=== PATIENT | female | born 1935 | race Asian ===

== ENCOUNTER 2019-11-02 12:36 | Inpatient (IN) | payer MEDICARE, MEDICAID ==
[~2019-11-02] VITALS: Ht 152.4 cm; Wt 49.9 kg
--- NOTE | 2019-11-02 12:41 | NUR ---
ED Nurse Note: pt brought in by ambulance from home for possible overdose on hydralazone 25mg. pt states she may taken more than 4 pills today. Pt has Hx of dementia.
[2019-11-02 12:42] VITALS: BP 135/70
--- NOTE | 2019-11-02 13:00 | NUR ---
ED Nurse Note: pt taken to CT
--- NOTE | 2019-11-02 13:17 | NUR ---
ED Nurse Note: pt back from ct
--- NOTE | 2019-11-02 13:37 | Diagnostic Imaging Report ---
Indications: Altered mental status Technique: Spiral acquisitions obtained through the brain. Angled axial and coronal 5 x 5 mm slices were reconstructed. Total dose length product 1018 mGycm. CTDI vol(s) 53 mGy. Dose reduction achieved using automated exposure control Comparison: None. Findings: No acute intracranial hemorrhage or edema. No mass effect or midline shift. There is minimal age-related cerebral volume loss and minimal periventricular deep white matter chronic ischemic change.. Visualized orbits are unremarkable. The sinuses are clear. The mastoids are clear. The calvarium is intact. Impression: Minimal chronic and age-related changes Negative for acute intracranial bleed or mass effect. The CT scanner at [facility] is accredited by the [employer] and the scans are performed using protocols designed to limit radiation exposure to as low as reasonably achievable to attain images of sufficient resolution adequate for diagnostic evaluation.
--- NOTE | 2019-11-02 13:46 | Emergency Room Report ---
History of Present Illness General Chief Complaint: Overdose Source: Patient Present Illness HPI Patient sent from home with reports of change in mental status initially the history of present illness was significantly limited However we were able to obtain the son's phone number who reports that the patient has been having signs of dementia Worsening over the past several days and appears to be possibly taking too much of her medications They were concerned about her wellbeing And requesting for her to be in the hospital Patient herself Awakens at times is verbal however at times does show some signs of confusion There was no reports of vomiting or diarrhea no reports of fevers Son contacted at [phone] Allergies: Coded Allergies: No Known Allergies (Unverified , 11/02/19) COVID-19 Screening Contact w/high risk pt: No Recent Travel to affected area: No Experienced COVID-19 symptoms?: No COVID-19 Testing performed MICROFILM CAMERA OPERATOR: No Patient History Limited by: medical condition Past Medical History: see triage record Now: No Reviewed Nursing Documentation: PMH: Agreed; PSxH: Agreed Nursing Documentation-PMH Past Medical History: No History, Except For Hx Hypertension: Yes Review of Systems All Other Systems: limited - Other than the ones mentioned in the history of present illness all others are reviewed however they do stay limited due to the patient's mental status Physical Exam Vital Signs Date Time Temp Pulse Resp B/P (MAP) Pulse Ox O2 Delivery O2 Flow Rate FiO2 11/02/19 12:29 97.9 56 18 132/61 (84) 98 Room Air Sp02 EP Interpretation: reviewed, normal General Appearance: no apparent distress Head: normocephalic, atraumatic Eyes: bilateral eye PERRL, bilateral eye EOMI ENT: dry mucus membranes Neck: supple, no meningismus Respiratory: lungs clear, no respiratory distress, no retraction Cardiovascular #1: regular rate, rhythm Gastrointestinal: non tender, soft Genitourinary: no CVA tenderness Musculoskeletal: other - No obvious focal deficits however patient does not follow command Neurologic: responsive - Patient has eyes open responsive was able to give her son's phone number however does have some signs of encephalopathy Skin: no rash Lymphatic: no adenopathy Medical Decision Making Diagnostic Impression: Primary Impression: encephalopathy Additional Impression: Dehydration ER Course Given the patient's history and presentation multiple differentials and consideration including but not limited to Infectious process, neurological, neurosurgical, dehydration patient has extensive Work-up initiated CT imaging does not show any acute process I did speak to the patient's son who reports that the patient's mentation has continued to worsen they feel uncomfortable with the patient at home and are concerned she can potentially take the wrong medications or too much of the other medications and requesting inpatient care Labs Test 11/02/19 13:21 11/02/19 14:34 11/03/19 05:20 11/03/19 10:05 White Blood Count 7.0 K/UL (4.8-10.8) 11.4 K/UL (4.8-10.8) Red Blood Count 4.35 M/UL (4.20-5.40) 4.18 M/UL (4.20-5.40) Hemoglobin 14.4 G/DL (12.0-16.0) 13.8 G/DL (12.0-16.0) Hematocrit 40.1 % (37.0-47.0) 38.3 % (37.0-47.0) Mean Corpuscular Volume 92 FL (80-99) 92 FL (80-99) Mean Corpuscular Hemoglobin 33.1 PG (27.0-31.0) 33.1 PG (27.0-31.0) Mean Corpuscular Hemoglobin Concent 35.9 G/DL (32.0-36.0) 36.1 G/DL (32.0-36.0) Red Cell Distribution Width 11.4 % (11.6-14.8) 11.3 % (11.6-14.8) Platelet Count 215 K/UL (150-450) 222 K/UL (150-450) Mean Platelet Volume 4.9 FL (6.5-10.1) 5.0 FL (6.5-10.1) Neutrophils (%) (Auto) % (45.0-75.0) 83.0 % (45.0-75.0) Lymphocytes (%) (Auto) % (20.0-45.0) 9.9 % (20.0-45.0) Monocytes (%) (Auto) % (1.0-10.0) 6.4 % (1.0-10.0) Eosinophils (%) (Auto) % (0.0-3.0) 0.3 % (0.0-3.0) Basophils (%) (Auto) % (0.0-2.0) 0.3 % (0.0-2.0) Differential Total Cells Counted 100 Neutrophils % (Manual) 79 % (45-75) Lymphocytes % (Manual) 16 % (20-45) Monocytes % (Manual) 4 % (1-10) Eosinophils % (Manual) 1 % (0-3) Basophils % (Manual) 0 % (0-2) Band Neutrophils 0 % (0-8) Platelet Estimate Adequate Platelet Morphology Normal Red Blood Cell Morphology Normal Sodium Level 131 MMOL/L (136-145) 131 MMOL/L (136-145) Potassium Level 3.4 MMOL/L (3.5-5.1) 3.5 MMOL/L (3.5-5.1) Chloride Level 95 MMOL/L (98-107) 95 MMOL/L (98-107) Carbon Dioxide Level 25 MMOL/L (21-32) 26 MMOL/L (21-32) Anion Gap 11 mmol/L (5-15) 11 mmol/L (5-15) Blood Urea Nitrogen 10 mg/dL (7-18) 9 mg/dL (7-18) Creatinine 0.7 MG/DL (0.55-1.30) 0.7 MG/DL (0.55-1.30) Estimat Glomerular Filtration Rate > 60 mL/min (>60) > 60 mL/min (>60) Glucose Level 142 MG/DL (74-106) 105 MG/DL (74-106) Calcium Level 8.7 MG/DL (8.5-10.1) 8.7 MG/DL (8.5-10.1) Total Bilirubin 0.6 MG/DL (0.2-1.0) 0.8 MG/DL (0.2-1.0) Aspartate Amino Transf (AST/SGOT) 23 U/L (15-37) 55 U/L (15-37) Alanine Aminotransferase (ALT/SGPT) 24 U/L (12-78) 33 U/L (12-78) Alkaline Phosphatase 57 U/L (46-116) 50 U/L (46-116) Total Creatine Kinase 132 U/L (26-308) Troponin I 0.005 ng/mL (0.000-0.056) Pro-B-Type Natriuretic Peptide 406 pg/mL (0-125) Total Protein 7.0 G/DL (6.4-8.2) 6.9 G/DL (6.4-8.2) Albumin 3.9 G/DL (3.4-5.0) 3.8 G/DL (3.4-5.0) Globulin 3.1 g/dL 3.1 g/dL Albumin/Globulin Ratio 1.3 (1.0-2.7) 1.2 (1.0-2.7) Lipase 107 U/L (73-393) Urine Color Pale yellow Urine Appearance Slightly cloudy Urine pH 8 (4.5-8.0) Urine Specific Alexis 1.010 (1.005-1.035) Urine Protein 2+ (NEGATIVE) Urine Glucose (UA) Negative (NEGATIVE) Urine Ketones 2+ (NEGATIVE) Urine Blood 1+ (NEGATIVE) Urine Nitrite Negative (NEGATIVE) Urine Bilirubin Negative (NEGATIVE) Urine Urobilinogen Normal MG/DL (0.0-1.0) Urine Leukocyte Esterase Negative (NEGATIVE) Urine RBC 0-2 /HPF (0 - 2) Urine WBC 0-2 /HPF (0 - 2) Urine Squamous Epithelial Cells Few /LPF (NONE/OCC) Urine Bacteria Few /HPF (NONE) Urine Opiates Screen Negative (NEGATIVE) Urine Barbiturates Screen Negative (NEGATIVE) Phencyclidine (PCP) Screen Negative (NEGATIVE) Urine Amphetamines Screen Negative (NEGATIVE) Urine Benzodiazepines Screen Negative (NEGATIVE) Urine Cocaine Screen Negative (NEGATIVE) Urine Marijuana (THC) Screen Negative (NEGATIVE) Hemoglobin A1c 6.8 % (4.3-6.0) Magnesium Level 2.0 MG/DL (1.8-2.4) Vitamin B12 Level 847 PG/ML (193-986) Folate 27.5 NG/ML (8.6-58.9) Thyroid Stimulating Hormone (TSH) 0.919 uiU/mL (0.358-3.740) Ammonia 17 umol/L (11-32) Test 11/04/19 05:50 White Blood Count 6.1 K/UL (4.8-10.8) Red Blood Count 3.74 M/UL (4.20-5.40) Hemoglobin 12.7 G/DL (12.0-16.0) Hematocrit 34.0 % (37.0-47.0) Mean Corpuscular Volume 91 FL (80-99) Mean Corpuscular Hemoglobin 34.0 PG (27.0-31.0) Mean Corpuscular Hemoglobin Concent 37.3 G/DL (32.0-36.0) Red Cell Distribution Width 10.9 % (11.6-14.8) Platelet Count 191 K/UL (150-450) Mean Platelet Volume 5.2 FL (6.5-10.1) Neutrophils (%) (Auto) 71.4 % (45.0-75.0) Lymphocytes (%) (Auto) 17.9 % (20.0-45.0) Monocytes (%) (Auto) 9.6 % (1.0-10.0) Eosinophils (%) (Auto) 0.6 % (0.0-3.0) Basophils (%) (Auto) 0.5 % (0.0-2.0) Sodium Level 134 MMOL/L (136-145) Potassium Level 3.5 MMOL/L (3.5-5.1) Chloride Level 98 MMOL/L (98-107) Carbon Dioxide Level 28 MMOL/L (21-32) Anion Gap 9 mmol/L (5-15) Blood Urea Nitrogen 11 mg/dL (7-18) Creatinine 0.7 MG/DL (0.55-1.30) Estimat Glomerular Filtration Rate > 60 mL/min (>60) Glucose Level 86 MG/DL (74-106) Calcium Level 8.3 MG/DL (8.5-10.1) Total Bilirubin 1.0 MG/DL (0.2-1.0) Aspartate Amino Transf (AST/SGOT) 90 U/L (15-37) Alanine Aminotransferase (ALT/SGPT) 39 U/L (12-78) Alkaline Phosphatase 38 U/L (46-116) Total Protein 6.1 G/DL (6.4-8.2) Albumin 3.4 G/DL (3.4-5.0) Globulin 2.7 g/dL Albumin/Globulin Ratio 1.3 (1.0-2.7) Rhythm Strip Diag. Results EP Interpretation: yes Rate: 77 Rhythm: NSR, no PVC's, no ectopy Chest X-Ray Diagnostic Results Chest X-Ray Diagnostic Results : Chest X-Ray Ordered: Yes # of Views/Limited/Complete: 1 View Indication: Chest Pain EP Interpretation: Yes Interpretation: no consolidation, no effusion, no pneumothorax Impression: No acute disease Electronically Signed by: Speedy Randle DO CT/MRI/US Diagnostic Results CT/MRI/US Diagnostic Results : Impression CT head no acute disease Last Vital Signs Date Time Temp Pulse Resp B/P (MAP) Pulse Ox O2 Delivery O2 Flow Rate FiO2 11/02/19 12:42 97.9 60 18 135/70 98 Room Air Status: improved Disposition: ADMITTED INPATIENT Condition: Serious Speedy Randle DO Nov 02, 2019 13:46
--- NOTE | 2019-11-02 13:47 | NUR ---
ED Nurse Note: [phone] "eldest son" #
--- NOTE | 2019-11-02 13:50 | NUR ---
ED Nurse Note: PT took out IV and disconnected her self from monitor box and stated she wanted to go home. pt also became aggitated and physically aggressive. pt attempted to strike out at staff. ERMD aware with haldol and ativan order.
[2019-11-02] MEDS ORDERED: Haloperidol 5mg/ml Inj IM ONE (14:00)
[2019-11-02] MEDS ORDERED: LORazepam Inj 2mg/ml 1ml IV ONE (14:00)
[2019-11-02 14:06] LABS: HEMATOCRIT 40.1 % (37.0-47.0); HEMOGLOBIN 14.4 G/DL (12.0-16.0); MEAN CORPUSCULAR VOLUME 92 FL (80-99); PLATELET COUNT 215 K/UL (150-450); RED BLOOD COUNT 4.35 M/UL (4.20-5.40); RED CELL DISTRIBUTION WIDTH 11.4 % (11.6-14.8)
[2019-11-02 14:15] VITALS: BP 112/64
[2019-11-02 14:28] LABS: ANION GAP 11 mmol/L (5-15); BLOOD UREA NITROGEN 10 mg/dL (7-18); CALCIUM 8.7 MG/DL (8.5-10.1); CARBON DIOXIDE 25 MMOL/L (21-32); CHLORIDE 95 MMOL/L (98-107); CREATININE 0.7 MG/DL (0.55-1.30); POTASSIUM 3.4 MMOL/L (3.5-5.1); SODIUM 131 MMOL/L (136-145)
--- NOTE | 2019-11-02 14:36 | NUR ---
ED Nurse Note: urine sample collected and sent to lab. pt is calm and coorporative at this time.
[2019-11-02 14:39] LABS: ALANINE AMINOTRANSFERASE 24 U/L (12-78); ALBUMIN 3.9 G/DL (3.4-5.0); ALBUMIN/GLOBULIN RATIO 1.3 (1.0-2.7); ALKALINE PHOSPHATASE 57 U/L (46-116); ASPARTATE AMINO TRANSFERASE 23 U/L (15-37); BILIRUBIN,TOTAL 0.6 MG/DL (0.2-1.0); CREATINE KINASE 132 U/L (26-308)
[2019-11-02] MEDS ORDERED: HYDRALAZINE HCL50 MG ORAL (14:52)
[2019-11-02] MEDS ORDERED: MEMANTINE HCL E28 MG PO (14:52)
[2019-11-02] MEDS ORDERED: AMLODIPINE BESYL5 MG ORAL (14:52)
[2019-11-02] MEDS ORDERED: ATORVASTATIN CA20 MG ORAL (14:52)
[2019-11-02] MEDS ORDERED: DONEPEZIL HCL10 M2 ORAL (14:52)
[2019-11-02] MEDS ORDERED: METOPROLOL SUCC50 MG ORAL (14:52)
[2019-11-02] MEDS ORDERED: MICARDIS40 MG ORAL (14:52)
[2019-11-02] MEDS ORDERED: ASPIRIN-LOW81 MG ORAL (14:52)
[2019-11-02 15:33] LABS: APPEARANCE,URINE SLIGHTLY CLOUDY; BILIRUBIN, URINE NEGATIVE (NEGATIVE); COLOR,URINE PALE YELLOW; GLUCOSE, URINE (UA) NEGATIVE (NEGATIVE); KETONES,URINE 2+ (NEGATIVE); LEUKOCYTE ESTERASE ,URINE NEGATIVE (NEGATIVE); NITRITE,URINE NEGATIVE (NEGATIVE); PH,URINE 8 (4.5-8.0); PROTEIN,URINE 2+ (NEGATIVE); UROBILINOGEN,URINE NORMAL MG/DL (0.0-1.0)
[2019-11-02 16:29] VITALS: BP 130/76
--- NOTE | 2019-11-02 16:30 | Diagnostic Imaging Report ---
Indication: Chest pain Technique: One view of the chest Comparison: none Findings: Lungs and pleural spaces are clear. The heart size is normal. Aorta is tortuous ectatic and calcified. Impression: No acute process
--- NOTE | 2019-11-02 17:01 | NUR ---
ED Nurse Note: home meds dropped off to pharmacy. slip # [id number]
--- NOTE | 2019-11-02 18:00 | NUR ---
ED Nurse Note: PT taken up to room 220 accompanied by sr. operations manager and RN in stable conditiopn via gurney with bus monitor box. belonging list signed off. report given to ariane whitehead.
--- NOTE | 2019-11-02 18:30 | NUR ---
NURSE NOTES: Received patient from ED RN Kassandra. Asleep in bed. IV line on left AC g20 intact, secured with kerlix. VS taken: 122/59, 61 HR, 96% O2 sat, 97.7F, 18 RR. No SOB or acute distress. Tele box attached. Refused to change into hospital gown. No skin issues noted. No belongings except for clothes she is wearing. Bed locked in low position, alarm on, side rails raised. Call light within reach. Will continue frequent rounding and plan of care.
--- NOTE | 2019-11-02 19:46 | NUR ---
NURSE NOTES: Report received from Felicia RN. Patient is awake and alert x 2. Patient is forgetful, and confused at times. Patient gets up without calling and is unsteady on feet. Educated patient to call when wanting to get up. Patient verbalized understanding, however, continued to get up out of bed. Patient identified as a high fall risk. Made GROUND OPERATIONS SUPERINTENDENT aware. Made charge nurse aware. Bed locked, alarmed, and in lowest position. patient noted to have 20 pamella in left forearm. Saline lock. Endorsed to Gabe MURGUIA that admission still needs to be completed. Will complete admission. Will continue to follow plan of care.
--- NOTE | 2019-11-02 19:46 | NUR ---
HAND-OFF: Report given to Gabe MURGUIA.
--- NOTE | 2019-11-02 21:03 | NUR ---
NURSE NOTES: Spoke with son Kalpesh Kate (next of Kin) to obtain medical history. Paged Doctor Pardeep for medication to help calm patient down. patient very anxious and keeps getting out of bed and is weak on feet.
--- NOTE | 2019-11-02 21:34 | NUR ---
NURSE NOTES: Patient found to be pulling at IV line. Patient continues to try and get out of bed without help. Patient is a high fall risk. Patient placed in bilateral soft wrist restraints due to pulling at lines and patient safety. Order obtained via telephone from Doctor Roberto.
[2019-11-02] MEDS: Heparin 5000 units/ml inj SUBQ SCH (22:31)
[2019-11-02] MEDS: NS w/KCl 20mEq 1000ml 1,000 ML IV SCH (22:47)
--- NOTE | 2019-11-02 23:45 | NUR ---
NURSE NOTES: Bed alarm found to be going off. Patient sitting at edge of bed stating she wants to go home. Patient out of restraints. Removed IV. Bleeding from IV insertion site. Patient became aggitated and combative when tried to put back to bed. With help from other staff was able to safely get patient back to bed. Attempted to use commercial engineer phone, patient would not use. Had German speaking staff member attempt to communicate with patient. Patient is confused and just kept stating she wanted to go home. Attempted to place new IV access, patient became increasingly combative and continued to pull away. Unable to gain IV access at this time. Patient place back in restraints. Bed locked, alarmed, in lowest position. Doctor Pardeep called to inform of no IV access. No answer, Gabe MURGUIA left voice mail. Will await call back and continue to follow plan of care.
[2019-11-03] VITALS: BP 134/60
--- NOTE | 2019-11-03 00:22 | NUR ---
NURSE NOTES: Patient's bed alarm going off. Patient found at edge of bed out of restraints. Brought patient to bathroom. Assisted patient back to bed. Gave water and crackers. After finished. Safely put back in bilateral soft wrist restraints. When putting back in restraints Gabe MURGUIA noticed that patient has slight bruising on wrist. Likely from pulling to get out of restraints. No edema noted. Patient able to move extremities. Pules present.
[2019-11-03] MEDS ORDERED: LORazepam Inj 2mg/ml 1ml IV SCH (01:30)
--- NOTE | 2019-11-03 01:33 | NUR ---
NURSE NOTES: Acknowledge ordered for one time dose of Ativan. Doctor Pardeep ordered it via IV. As previously stated, patient removed IV and would not allow staff to place a new one. Patient is currently asleep in bed. Will attempt to place new IV when patient is awake.
--- NOTE | 2019-11-03 01:45 | Consultation ---
DATE OF CONSULTATION: 11/02/2019 CARDIOLOGY CONSULTATION CONSULTING PHYSICIAN: Lopez Roberto MD. REFERRING PHYSICIAN: Alo Hahn MD. REASON FOR CONSULTATION: Confusion, bradycardia. HISTORY OF PRESENT ILLNESS: This is an 84-year-old [place]ian female. She apparently lives at home with family members. She was brought to the emergency room for further evaluation of increasing confusion and agitation and "worsening dementia." The patient has been progressive more over the past few days and has been taking too many of her usual medications. Family members were concerned about her well being. They felt that she could not stay safely at home. The patient reportedly has not had any signs of fever, chills, cough, sputum production, or shortness of breath. No vomiting or diarrhea. No dysuria or incontinence. There is no record of any COVID-19 contact. PAST MEDICAL HISTORY: Osteoporosis, osteoarthritis, hypertension, hyperlipidemia. ALLERGIES: Not known. SOCIAL HISTORY: Nonsmoker. No alcohol use. FAMILY HISTORY: Noncontributory. REVIEW OF SYSTEMS: Cannot be reliably obtained from the patient. Pertinent data from family members as outlined above. PHYSICAL EXAMINATION: GENERAL: Awake, alert, interactive, but confused. Non directable bed wanting to get up and self-ambulate. VITAL SIGNS: Blood pressure 132/61, heart rate 56, respirations 18, afebrile, oxygen saturation 98% on room air. HEENT: Temporal wasting. Dry mucous membranes. NECK: Supple. LUNGS: Clear. BREASTS: No breast masses. CARDIAC: Regular. Normal S1, S2. A 1/6 systolic murmur at base. ABDOMEN: Soft. EXTREMITIES: No edema. NEUROLOGIC: Reveals symmetric strength. No asterixis. LABORATORY DATA: White count 7, hemoglobin 14, platelets 215. Sodium 131, potassium 3.4, bicarb 25, BUN 10, creatinine 0.7, glucose 142. Pro natriuretic peptide 406. Troponin negative. Albumin 3.9. Urinalysis with no active sediment. Toxicology screen negative. IMPRESSION: 1. Acute metabolic encephalopathy with baseline dementia. 2. Asymptomatic sinus bradycardia - may be medication related. 3. Hypertensive heart disease, on multiple medications. 4. Hyponatremia. 5. Hypokalemia. 6. Hypochloremia. 7. Hyperglycemia. 8. Chronic diastolic congestive heart failure. PLAN: 1. Saline hydration. 2. Hold all medications. 3. Stepwise uptitration of antihypertensive regimen. 4. Avoid diuretics. 5. Check hemoglobin A1c to assess for hyperglycemia. 6. Metabolic profile to include B12, folate, and thyroid panel as well as ammonia levels. 7. CT scan of the brain was reportedly negative, but will be reviewed. 8. Patient may require placement. 9. Further recommendations to follow. Lopez Roberto M.D. DR: LINO JOB#: [id number] CC: TERESO
[2019-11-03 04:00] VITALS: BP 121/75
--- NOTE | 2019-11-03 04:00 | NUR ---
NURSE NOTES: 24 pamella IV placed in right hand. Labs drawn. Ativan given via IV. patient placed back in restraints.
[2019-11-03 05:44] LABS: BASOPHILS % (AUTO) 0.3 % (0.0-2.0); EOSINOPHILS % (AUTO) 0.3 % (0.0-3.0); HEMATOCRIT 38.3 % (37.0-47.0); HEMOGLOBIN 13.8 G/DL (12.0-16.0); LYMPHOCYTES % (AUTO) 9.9 % (20.0-45.0); MEAN CORPUSCULAR VOLUME 92 FL (80-99); MONOCYTES % (AUTO) 6.4 % (1.0-10.0); PLATELET COUNT 222 K/UL (150-450); RED BLOOD COUNT 4.18 M/UL (4.20-5.40); RED CELL DISTRIBUTION WIDTH 11.3 % (11.6-14.8); WHITE BLOOD COUNT 11.4 K/UL (4.8-10.8)
[2019-11-03] MEDS: NS w/KCl 20mEq 1000ml 1,000 ML IV SCH ×3 (06:00→22:04)
[2019-11-03 06:18] LABS: ALANINE AMINOTRANSFERASE 33 U/L (12-78); ALBUMIN 3.8 G/DL (3.4-5.0); ALBUMIN/GLOBULIN RATIO 1.2 (1.0-2.7); ALKALINE PHOSPHATASE 50 U/L (46-116); ANION GAP 11 mmol/L (5-15); ASPARTATE AMINO TRANSFERASE 55 U/L (15-37); BILIRUBIN,TOTAL 0.8 MG/DL (0.2-1.0); BLOOD UREA NITROGEN 9 mg/dL (7-18); CALCIUM 8.7 MG/DL (8.5-10.1); CARBON DIOXIDE 26 MMOL/L (21-32); CHLORIDE 95 MMOL/L (98-107); CREATININE 0.7 MG/DL (0.55-1.30); POTASSIUM 3.5 MMOL/L (3.5-5.1); SODIUM 131 MMOL/L (136-145)
--- NOTE | 2019-11-03 06:30 | NUR ---
NURSE NOTES: Bed alarm sounding. Patient found at edge of bed out of restraints pulling at IV. IV appears to be infiltrated. Right hand noted to be slightly swollen. IV removed. Patient brought to bathroom. Brought safely back to bed. Placed back in restraints. Bed alarm on.
--- NOTE | 2019-11-03 07:39 | NUR ---
HAND-OFF: Report given to Gena MURGUIA. Endorsed that patient is a high fall risk. Endorsed that patient gets up out of bed without help. Endorsed that patient confused and Macedonian speaking. Endorsed that patient is placed in bilateral soft wrist restraints. Patient in stable condition at this time.
[2019-11-03 08:00] VITALS: BP 101/56
--- NOTE | 2019-11-03 08:00 | NUR ---
NURSE NOTES: Patient received from Gabe Hendrickson RN. Patient stable SR on monitor with RR even and unlabored on RA. Patient took off her reastraint and was observed trying to get out of bed. Ambulated to restroom. Changed out of her clothes and into fresh gown. New IV placed. Very confused speaking only Armenian. Armenian speaking nurse available and confirmed AOx1. Side rails up x2, call light within reach bed low and locked. Will continue to monitor.
[2019-11-03] MEDS: Haloperidol 5mg/ml Inj IM PRN (09:11)
[2019-11-03] MEDS: Heparin 5000 units/ml inj SUBQ SCH ×2 (09:25→22:03)
--- NOTE | 2019-11-03 09:30 | NUR ---
NURSE NOTES: Patient very restless. continuet Addendum: 11/03/19 at 1417 by BRITTANY OLIVER RN to get out of bed and taking off restrains. Scheduled seroquel given and PRN IM Haldol. Dr. Hahn aware and consulted Dr. Garcia.
[2019-11-03] MEDS ORDERED: OLANZapine 2.5mg tab ORAL SCH (10:45)
[2019-11-03] MEDS ORDERED: LORazepam Inj 2mg/ml 1ml IM SCH (11:30)
--- NOTE | 2019-11-03 11:34 | NUR ---
CASE MANAGEMENT:INITIAL REVIEW 84 YR OLD FEMALE BIBA FROM HOME CC;OVERDOSE SI;ENCEPHALOPATHY 98.2 56 18 135/70 97% ON RA NA 131 K+ 3.4 CL 95 BG 142 BNP 406 UA+ PROTEIN, KETONES, BLOOD TOX ~ NEGATIVE HEAD CT W/O CONTRAST ~ Negative for acute intracranial bleed or mass effect. CXR ~ NO ACUTE PROCESS IS;IVF NS BOLUS HALDOL IM ONCE ATIVAN IV ONCE ADMITTED TO TELEMETRY TELE STATUS DCP; FROM HOME
[2019-11-03 12:00] VITALS: BP 152/79
--- NOTE | 2019-11-03 12:15 | NUR ---
NURSE NOTES: Patient very agitated, restless and combative. Scratched RNs, attempted to bite and kick and refused to take one time dose of zyprexa 5mg by bitting spoon and breaking it and spitting out medication. Able to give her 2.5mg dose with applesauce. Dr. Garcia aware and also ordered Ativan 1mg IM. Given medication and patient now sleeping. HOB raised for safety.
[2019-11-03] MEDS ORDERED: LORazepam 1mg tab ORAL SCH (15:30)
[2019-11-03 16:00] VITALS: BP 155/74
--- NOTE | 2019-11-03 16:00 | NUR ---
NURSE NOTES: PO Ativan and Zyprexa one time dose given to patient. Still very resistive and difficult to redirect. Will continue to closely monitor.
--- NOTE | 2019-11-03 16:28 | NUR ---
PT Note Acknowledged order for PT eval/tx. Attempted to see patient but patient was very combative and resistive. Will check again in AM.
--- NOTE | 2019-11-03 17:30 | History and Physical Report ---
DATE OF ADMISSION: 11/02/2019 CHIEF COMPLAINT: Blood pressure medication overdose, toxic and metabolic encephalopathy. HISTORY OF PRESENT ILLNESS: The patient is an 84-year-old female. She has a history of hypertensive heart disease and dementia. She was at home where she was being watched by her 11-year-old granddaughter who noted that she took approximately 10 additional blood pressure pills. According to the patient's son, because of her dementia, she often takes too many medications. They normally keep the medications locked. She was brought to the emergency room by paramedics where her blood pressure was stable. A CT scan of the head showed chronic changes. Laboratories were significant for hyponatremia. In light of the potential overdose of blood pressure medication, she is now admitted for further evaluation and care. She is agitated and anxious. She continues to try to get out of bed and pull out her IV. PAST MEDICAL HISTORY: As above. PAST SURGICAL HISTORY: None. CURRENT MEDICATIONS: Reconciled and reviewed. ALLERGIES: None. FAMILY HISTORY: None. SOCIAL HISTORY: There is no known history of tobacco, ethanol, or drugs. REVIEW OF SYSTEMS: Not obtainable as the patient is confused. PHYSICAL EXAMINATION: VITAL SIGNS: Temperature 98, pulse 65, respirations 17, blood pressure 130/76. GENERAL: The patient is well developed, in no apparent distress. HEART: Regular rate and rhythm. Pupils equal, round, and reactive to light. The oropharynx is clear. Mucous membranes are moist. NECK: Supple. HEART: Regular rate and rhythm. No murmurs, rubs, or gallops. LUNGS: Clear to auscultation bilaterally. ABDOMEN: Soft, nontender, nondistended. EXTREMITIES: Without clubbing, cyanosis, or edema. LABORATORY AND DIAGNOSTIC DATA: Pertinent data, CT of head showed chronic changes. White count 7, hemoglobin 14, platelet count 215,000. Sodium 131, potassium 3.4, chloride 95, bicarb 25, BUN 10, creatinine 0.7. A1c was 6.8. Natriuretic peptide level was 406. Troponin 0.005. ASSESSMENT: This is an elderly female admitted with complaints of a blood pressure medication overdose. She is also hyponatremic. Of note, paramedics have documented that she also takes Keppra, although the family denies any known history of seizures. PLAN: IV hydration. Monitor for hypotension. Replace electrolytes. Cardiology evaluation to assist with blood pressure management. The family has been asked to bring in her medications so they can be reviewed. We will consider EEG. Alo Hahn M.D. DR: Luis JOB#: [id number] CC:
[2019-11-03] MEDS: OLANZapine 2.5mg tab ORAL SCH (17:58)
--- NOTE | 2019-11-03 19:02 | NUR ---
HAND-OFF: Report given to Laura MURGUIA. Patient still resistive to care pulling on restraints but more calm. Patient stable. Plan of care endorsed. Addendum: 11/04/19 at 0725 by BRITTANY OLIVER RN Endorsed that pt has BL bruising to wrists. Both Dr. Roberto and Dr. Jose paige.
--- NOTE | 2019-11-03 19:14 | NUR ---
NURSE NOTES: Received report from SHANTAL Escalante. Patient is awake lying semi-tee's; restless and attempting to get out of bed. No signs of acute distress noted; denies pain at this time. AOx1; able to make needs known to a degree. Primarily German speaking. Restraints in place for safety precautions. No IV access noted. Will reattempt to establish IV access at a later time. Bed at lowest position, brakes on, siderails up x3. Bedpan at bedside. Call light within reach. Will continue to monitor.
[2019-11-03 20:00] VITALS: BP 132/67
[2019-11-04] VITALS: BP 102/70
--- NOTE | 2019-11-04 01:45 | NUR ---
NURSE NOTES: Patient noted to have removed IV access and highly agitated while attempting to get out of bed. Will administer Haldol as ordered.
[2019-11-04] MEDS: Haloperidol 5mg/ml Inj IM PRN (01:51)
[2019-11-04 04:00] VITALS: BP 92/45
--- NOTE | 2019-11-04 04:45 | Progress Note ---
DATE: 11/03/2019 CARDIOLOGY PROGRESS NOTE SUBJECTIVE: Patient remains confused, uncooperative even with Malay supervisor landscape. She wants to get out of bed and is requiring restraints for safety. Family members are arranging for an assisted living facility. OBJECTIVE: VITAL SIGNS: Blood pressure parameters are labile 101/56 to 155/74, heart rate 59 to 96, respiratory 20, afebrile, oxygen saturation 96% on room air. LUNGS: Clear. CARDIAC: Regular. No new murmur. ABDOMEN: Soft. EXTREMITIES: No edema. LABORATORY DATA: Sodium 131, potassium 3.5, chloride 95, BUN 9, creatinine 0.7. Hemoglobin A1c 6.8. IMPRESSION: 1. Toxic encephalopathy. 2. Dementia. 3. Hyponatremia. 4. Hypochloremia. 5. Possible drug overdose with antihypertensive medication. 6. Type 2 diabetes mellitus. 7. Possible history of seizure disorder. PLAN: 1. Close observation. 2. Saline hydration. 3. Potassium replacement. 4. Try to expand database with family members to bring in medications. 5. Avoid diuretics in this patient namely thiazides. 6. May consider resumption of Aricept. Lopez Roberto M.D. DR: LINO JOB#: [id number] CC:
--- NOTE | 2019-11-04 07:20 | NUR ---
NURSE NOTES: Received report from SHANTAL Sanchez. Patient in bed resting, no active s/s cardiac, respiratory distress noticed at this time. Patient AOx0-1, confused. Endorsed Haldol one time given during the night, on room air, No IV at this time, Patient on bilateral soft wrist restraints, able to move, cap refill <3 sec. Bed in lowest position, side rails upx3, call light within reach, bed alarm on. Will continue to monitor.
--- NOTE | 2019-11-04 07:30 | NUR ---
HAND-OFF: Report given to SHANTAL Torres and SHANTAL Woods. Patient is asleep lying semi-tee's; resting comfortably. In stable condition.
[2019-11-04 07:43] LABS: BASOPHILS % (AUTO) 0.5 % (0.0-2.0); EOSINOPHILS % (AUTO) 0.6 % (0.0-3.0); HEMOGLOBIN 12.7 G/DL (12.0-16.0); LYMPHOCYTES % (AUTO) 17.9 % (20.0-45.0); MEAN CORPUSCULAR VOLUME 91 FL (80-99); MONOCYTES % (AUTO) 9.6 % (1.0-10.0); NEUTROPHILS % (AUTO) 71.4 % (45.0-75.0); PLATELET COUNT 191 K/UL (150-450); RED BLOOD COUNT 3.74 M/UL (4.20-5.40); RED CELL DISTRIBUTION WIDTH 10.9 % (11.6-14.8); WHITE BLOOD COUNT 6.1 K/UL (4.8-10.8)
--- NOTE | 2019-11-04 07:45 | NUR ---
NURSE NOTES: Dr. Hahn at the bedside, made aware pulling out IV with bilateral soft wrist restraints. No new order received at this time.
[2019-11-04 08:00] VITALS: BP 133/59
--- NOTE | 2019-11-04 08:06 | General Progress Note ---
Assessment/Plan Problem List: (1) Hyponatremia ICD Codes: E87.1 - Hypo-osmolality and hyponatremia SNOMED: 12817355 (2) Metabolic encephalopathy ICD Codes: G93.41 - Metabolic encephalopathy SNOMED: 05665103 (3) Drug overdose ICD Codes: T50.901A - Poisoning by unspecified drugs, medicaments and biological substances, accidental (unintentional), initial encounter SNOMED: 39375564 Status: stable, progressing Assessment/Plan: anxiolytics follow up sodium level agitation may be due to underlying dementia and unfamiliar environment Subjective ROS Limited/Unobtainable: No Constitutional: Reports: malaise HEENT: Reports: no symptoms Cardiovascular: Reports: no symptoms Respiratory: Reports: no symptoms Gastrointestinal/Abdominal: Reports: no symptoms Genitourinary: Reports: no symptoms Neurologic/Psychiatric: Reports: anxiety, emotional problems Endocrine: Reports: no symptoms Hematologic/Lymphatic: Reports: no symptoms Allergies: Coded Allergies: No Known Allergies (Unverified , 11/02/19) All Systems: reviewed and negative except above Subjective severely agitated yesterday. pulled out multiple IVs. currently restrained. no fever or chills. AM labs pending. received multiple doses of different anxiolytics that worked for only few hrs at time. Objective Last 24 Hour Vital Signs Date Time Temp Pulse Resp B/P (MAP) Pulse Ox O2 Delivery O2 Flow Rate FiO2 11/04/19 04:00 57 11/04/19 04:00 97.7 56 18 92/45 (61) 96 11/04/19 00:00 67 11/04/19 00:00 97.5 96 20 102/70 (81) 100 11/03/19 21:00 Room Air 11/03/19 20:00 96.4 90 18 132/67 (88) 99 11/03/19 20:00 110 11/03/19 16:00 104 11/03/19 16:00 97.8 92 20 155/74 (101) 97 11/03/19 12:00 97.5 96 22 152/79 (103) 97 11/03/19 12:00 105 11/03/19 09:00 Room Air Intake and Output 11/03/19 11/04/19 19:00 07:00 Intake Total 236 ml 281 ml Output Total 1 ml Balance 236 ml 280 ml Intake Oral 236 ml IV Total 281 ml Output Urine Total 1 ml # Voids 5 Laboratory Tests 11/03/19 10:05: Ammonia 17 11/04/19 05:50: White Blood Count 6.1, Red Blood Count 3.74L, Hemoglobin 12.7, Hematocrit 34.0L , Mean Corpuscular Volume 91, Mean Corpuscular Hemoglobin 34.0H, Mean Corpuscular Hemoglobin Concent 37.3H, Red Cell Distribution Width 10.9L, Platelet Count 191, Mean Platelet Volume 5.2L, Neutrophils (%) (Auto) 71.4, Lymphocytes (%) (Auto) 17.9L, Monocytes (%) (Auto) 9.6, Eosinophils (%) (Auto) 0.6, Basophils (%) (Auto) 0.5, Sodium Level [Pending], Potassium Level [Pending] , Chloride Level [Pending], Carbon Dioxide Level [Pending], Blood Urea Nitrogen [Pending], Creatinine [Pending], Estimat Glomerular Filtration Rate [Pending], Glucose Level [Pending], Calcium Level [Pending], Total Bilirubin [Pending], Aspartate Amino Transf (AST/SGOT) [Pending], Alanine Aminotransferase (ALT/SGPT ) [Pending], Alkaline Phosphatase [Pending], Total Protein [Pending], Albumin [ Pending], Globulin [Pending] Height (Feet): 5 Weight (Pounds): 110 General Appearance: WD/WN, lethargic, confused, agitated EENT: PERRL/EOMI, normal ENT inspection Neck: non-tender, normal alignment, supple Cardiovascular: normal peripheral pulses, normal rate, regular rhythm Respiratory/Chest: chest wall non-tender, lungs clear, normal breath sounds, no respiratory distress, no accessory muscle use Abdomen: normal bowel sounds, non tender, soft, no organomegaly, no mass Extremities: normal range of motion, non-tender Edema: no edema noted Arm (L), no edema noted Arm (R), no edema noted Leg (L), no edema noted Leg (R), no edema noted Pedal (L), no edema noted Pedal (R), no edema noted Generalized Neurologic: digital asset coordinator II-XII grossly normal, no motor/sensory deficits, abnormal gait , alert, disoriented Skin: normal pigmentation Lymphatic: normal anterior cervical (L), normal anterior cervical (R) Uomoto,Alo M. MD Nov 04, 2019 08:06
[2019-11-04 08:18] LABS: ALANINE AMINOTRANSFERASE 39 U/L (12-78); ALBUMIN 3.4 G/DL (3.4-5.0); ALBUMIN/GLOBULIN RATIO 1.3 (1.0-2.7); ALKALINE PHOSPHATASE 38 U/L (46-116); ANION GAP 9 mmol/L (5-15); ASPARTATE AMINO TRANSFERASE 90 U/L (15-37); BLOOD UREA NITROGEN 11 mg/dL (7-18); CALCIUM 8.3 MG/DL (8.5-10.1); CARBON DIOXIDE 28 MMOL/L (21-32); CHLORIDE 98 MMOL/L (98-107); CREATININE 0.7 MG/DL (0.55-1.30); POTASSIUM 3.5 MMOL/L (3.5-5.1); SODIUM 134 MMOL/L (136-145)
[2019-11-04] MEDS: OLANZapine 2.5mg tab ORAL SCH ×2 (08:57→14:02)
[2019-11-04] MEDS: Heparin 5000 units/ml inj SUBQ SCH ×2 (08:58→20:57)
[2019-11-04] MEDS: NS w/KCl 20mEq 1000ml 1,000 ML IV SCH ×2 (11:40→20:00)
[2019-11-04 12:00] VITALS: BP 93/57
--- NOTE | 2019-11-04 14:13 | NUR ---
PT Note: Attempted to see patient for eval and treatment but patient has been sedated and was unable to participate. Will check again in Am.
[2019-11-04 16:00] VITALS: BP_SYST 111; BP_SYST 92; BP_DIAS 47; BP_DIAS 58
--- NOTE | 2019-11-04 18:28 | NUR ---
TRANSFER TO FLOOR: Patient transferred to [facility] , per Dr. Roberto. Report given to SHANTAL Marroquin. Belongings and medications given to SHANTAL Marroquin. Family and or S/O informed of transfer.
--- NOTE | 2019-11-04 18:30 | NUR ---
NURSE NOTES: Received patient on floor. Patient vitals stable and bi lateral soft wrist restraints in place. Was not able to inspect sacral area and heels.
--- NOTE | 2019-11-04 19:28 | NUR ---
HAND-OFF: Report given to SHANTAL Stafford. Endorsed to him to to do skin check on patient and also made soil science technical officer aware.
--- NOTE | 2019-11-04 19:43 | NUR ---
NURSE NOTES: Patient in bed, awake, alert x 2. Respiration is even and unlabored. No s/s of pain or discomfort noted. Skin is warm and dry. Iv site noted, iv fluid is infusing as ordered. Kept clean and comfortable. Provided safe environment. Bed in low and locked position. Abdomen is soft and non distended. Restraints noted, site is clean, intact. Call light is at bedside. Will continue plan of care.
[2019-11-04 20:00] VITALS: BP 135/72
--- NOTE | 2019-11-04 20:30 | NUR ---
NURSE NOTES: Received patient on bed, awake and easily arouasable. denies any pain or discomfort. room air. no sob. with bilateral soft wrist restraints. iv line on the right hand running ns+20 meq @ 75 ml/hr. reiterated to call and ask for assistance. bed alarm on. bed locked and in lowest position. call light and light button within easy reach. will continue plan of care.
[2019-11-05] VITALS: BP 110/66
--- NOTE | 2019-11-05 01:15 | Progress Note ---
DATE: 11/04/2019 CARDIOLOGY PROGRESS NOTE SUBJECTIVE: Blood pressure parameters remained quite labile corresponding with mood. Monitored rhythm reveals sinus and sinus bradycardia. Patient now sedated following multiple doses of anxiolytic and neuroleptics for agitation and confusion. PHYSICAL EXAMINATION: VITAL SIGNS: Blood pressure 92/45 to 155/74, heart rate 56 to 110, respiratory rate 18 to 20, patient is afebrile, oxygen saturation 97% to 100% on room air. LUNGS: Clear. CARDIAC: Regular. Normal S1, S2. ABDOMEN: Soft. EXTREMITIES: No edema. LABORATORY DATA: White count 6.1, hemoglobin 12.7. Urinalysis, no active sediment. Toxicology screen negative. White count 6, hemoglobin 12.7. IMPRESSION: 1. Metabolic encephalopathy, improved. 2. Hyponatremia, improved. 3. Hypochloremia, resolved. 4. Dementia with agitation. 5. Labile blood pressure. Mood related. 6. Now sedated due to medications. PLAN: 1. Discontinue sedation. 2. Family member namely her son has stated he will be arranging an assisted living facility. 3. Continue saline hydration with potassium replacement. 4. No additional antihypertensive therapy for now. 5. Avoid diuretics especially thiazides in this patient long-term. 6. We will resume Aricept and Namenda. Lopez Roberto M.D. DR: LINO JOB#: [id number] CC:
[2019-11-05 04:00] VITALS: BP 123/61
--- NOTE | 2019-11-05 07:19 | NUR ---
HAND-OFF: Report given to albert huerta rn. patient is awake in stable condition. not in any form of respiratory distress. plan of care endorsed.
--- NOTE | 2019-11-05 07:46 | NUR ---
NURSE NOTES: Report received from SHANTAL Candelaria. Patient awake in bed, A and O x 2, verbal and english speaking, no SOB noted, bed in lowest position with breaks engaged and alarm on, IV line on R hand patent and intact, no c/o any discomfort at this time, will continue to monitor and proceed with plan of care, call light within reach.
[2019-11-05 08:00] VITALS: BP 141/75
[2019-11-05] MEDS: NS w/KCl 20mEq 1000ml 1,000 ML IV SCH (08:00)
[2019-11-05] MEDS: Heparin 5000 units/ml inj SUBQ SCH (08:47)
[2019-11-05] MEDS ORDERED: Memantine 10mg tab ORAL SCH (09:00)
[2019-11-05 12:00] VITALS: BP 143/69
--- NOTE | 2019-11-05 12:23 | NUR ---
CHARGE NURSE NOTE: [facility] up by pt's son Kalpesh. Spoke with pt's son, facility clarified that pt does not need a covid result upon discharge. notified. Son is coming to corn picker a patient around 3 pm.
--- NOTE | 2019-11-05 13:31 | NUR ---
P.T Note: P.T evaluation completed and tx initiated. Please refer to P.T evaluation for current functional status. Pt is alert, oriented to self but not not time and place.Pt is pleasant, periodically confused however follows commands and able to express needs appropriately. Pt appeared generally weak affecting her overall functional mobilities. Pt currently requires SBA x 1 for bed mobility, transfers and gait/ambulation activities. Skilled P.T service is warranted to increase strength and her balance to increase her mobility independence and safety during stay. Pt will be DC'd to assisted living facility arranged by her son. Follow up P.T visit was recommend. Thank you for this referral.
--- NOTE | 2019-11-05 15:05 | NUR ---
NURSE NOTES: Patient was discharged today at 1455 going to an assisted living. Discharge paper works, inventory form signed by patient. Patient noted with missing pair of shoes, provided a pair from homeless supply closet. IV line and ID band removed, no hematoma noted. Patient sent with pharmacy medications. Suzanna signs WNL, Left in stable condition without any c/o pain or discomfort, accompanied by son, Samuel Kate.
[2019-11-05] MEDS ORDERED: Donepezil 10mg tab ORAL SCH (21:00)
--- NOTE | 2019-11-06 01:30 | Discharge Summary ---
DATE OF ADMISSION: 11/02/2019 DATE OF DISCHARGE: 11/05/2019 ADMISSION DIAGNOSES: 1. Blood pressure medication overdose. 2. Dementia. 3. Hypertension. DISCHARGE DIAGNOSES: 1. Blood pressure medication overdose. 2. Dementia. 3. Hypertension. HOSPITAL COURSE: The patient was admitted with complaints of an overdose of blood pressure medications. Family had noted that she had taken possibly 10 hydralazine. She was confused and agitated and required multiple doses of anxiolytics. She had a CAT scan of the head that was unremarkable. Laboratories were also unremarkable. She was seen by Cardiology and Psychiatry. On discharge, she was back to baseline. The family will take her directly to an assisted living. Home health will be ordered there at the assisted living. DISCHARGE MEDICATIONS: Please see discharge medication list for discharge medications. DIET: Cardiac diet. ACTIVITIES: Ad-danis. Alo Hahn M.D. DR: DONNA JOB#: [id number] CC:
--- NOTE | 2019-11-06 08:15 | Progress Note ---
DATE: 11/05/2019 CARDIOLOGY PROGRESS NOTE SUBJECTIVE: The patient has no complaints, no distress, alert, more cooperative, but still confused. Data is obtained with the help of a Irish application integrator. PHYSICAL EXAMINATION: VITAL SIGNS: Blood pressure 123/61, heart rate 80, respiratory rate 19. LUNGS: Clear. CARDIAC: Regular. ABDOMEN: Soft. EXTREMITIES: No edema. IMPRESSION: 1. Metabolic encephalopathy, resolved. 2. Hyponatremia and hypochloremia likely due to diuretic therapy as an outpatient, corrected. 3. Mild transaminitis of no clinical significance. 4. Hypertensive heart disease with adequate blood pressure control, at present off therapy. 5. Dementia with confusion. PLAN: Discussed with the patient plan. She cannot return home because of inadequate assist support. An assisted living facility has been arranged. Medication regimen discussed in detail. Lopez Roberto M.D. DR: HORACE JOB#: [id number] CC:
== END 2019-11-05 14:58 | disposition home or self-care (01) | DRG 917 ==
LOC: EDBD 12:36 → EMR 14:12 → 2E 14:35 → EDBEDREQ 15:53 → 2E 11-03 17:09 → 4E 11-04 18:03
DX: T46.5X1A Poisoning by other antihypertensive drugs, accidental (unintentional), initial encounter (principal); G92 Toxic encephalopathy; E87.1 Hypo-osmolality and hyponatremia; I50.32 Chronic diastolic (congestive) heart failure; I11.0 Hypertensive heart disease with heart failure; F03.90 Unspecified dementia, unspecified severity, without behavioral disturbance, psychotic disturbance, mood disturbance, and anxiety; E87.8 Other disorders of electrolyte and fluid balance, not elsewhere classified; E87.6 Hypokalemia; R73.9 Hyperglycemia, unspecified; M81.0 Age-related osteoporosis without current pathological fracture; M19.90 Unspecified osteoarthritis, unspecified site; E78.5 Hyperlipidemia, unspecified; Y92.009 Unspecified place in unspecified non-institutional (private) residence as the place of occurrence of the external cause; R00.1 Bradycardia, unspecified
CPT/HCPCS: 36415; 70450; 71045; 80053; 80307; 81003; 82140; 82550; 82607; 82746; 83036; 83690; 83735; 83880; 84443; 84484; 85007; 85025; 93005; 96372; 96374; 99285